=== PATIENT | male | born 1950 | race Caucasian/White ===

== ENCOUNTER 2024-11-23 12:55 | Outpatient (AMB) | payer MEDICARE, MEDICAID, SELFPAY ==
[2024-11-23 13:16] VITALS: BP 147/83; PULSE 68; RESP 18; TEMP 36.4; O2SAT 91; BMI 21.9
--- NOTE | 2024-11-23 13:16 | ORTHONT_ITS ---
Vital signs 11/23/24 13:16 Height 1.7 m Height Method Measured Weight 63.56 kg Weight Measurement Method Standing Scale BMI 21.9 BP 147/83 H Blood Pressure Source Automatic Cuff Blood Pressure Location Left Upper Arm Position Sitting Respiration 18 Pulse 68 Pulse Source Monitor Temp 97.6 F Temp Source Temporal Artery Scan Pulse Oximetry (%) 91 L Oxygen Delivery Method Room Air Med/Allergies Allergies & Medications Allergies No Known Allergies Allergy (Verified 11/23/24 13:18) Medication Reconciliation aspirin 81 mg tablet 81 mg PO QDAY 11/23/24 [History Confirmed 11/23/24] Exam Exam Patient is in no acute distress and is cooperative with the examination today. Breathing is nonlabored. In no respiratory distress. Patient has no paraspinal tenderness. Spinal deformity cannot be appreciated. The gait of the patient is nonantalgic Bilateral extremities were evaluated and demonstrates sensation intact to light touch. Palpable pedal pulses are present. No significant edema is present. Bilateral knees were examined and the patient has full strength and range of motion.. The left hip was examined. Patient was able to flex to 90 degrees, adduct to 30 degrees, abduct to 40 degrees, internally rotate to 20 degrees, and externally rotate to 20 degrees. Patient has a negative logroll. Stinchfield is negative. The patient is nontender diffusely to touch. The right hip was examined. Patient was able to flex to 90 degrees, adduct to 30 degrees, abduct to 40 degrees, internally rotate to 20 degrees, and externally rotate to 20 degrees. Patient has a negative logroll. The stinchfield is negative. Assessment and Plan Problem List (1) Right hip pain: Status: Acute Plan: ASSESSMENT AND PLAN 1. Right hip pain: The symptoms suggest that the pain may not be originating from the hip, as it extends down the whole leg. Previous hip x-rays showed very mild arthritis. The pain does not exhibit characteristics of nerve pain such as electric sensations, numbness, or tingling. An x-ray of the hip will be ordered to further investigate the cause of the pain. The patient is advised to get the x-ray done at [facility] and bring a CD of the images for review. He has been taking Tylenol 100 mg for pain management, one tablet in the morning. He should continue with Tylenol as needed for pain relief. Risks and benefits of continuing Tylenol were discussed, including avoiding ibuprofen due to previous adverse effects. Lifestyle modifications such as avoiding activities that exacerbate the pain were recommended. No physical therapy or injections have been pursued yet, and these options may be considered based on x-ray results. Referral to a specialist may be necessary if the x-ray does not reveal a clear cause of the pain. 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 Level 3 ([id number]) MA Intake Visit Data Collection New Patient or Established: New Patient (never been to [facility]) Reason for Visit:: RIGHT HIP PAIN Seen by Clinical Staff ONLY (RN/MA): No 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 PCP or OBGYN visit in last 3 months: Yes Hx Now: No Do You Feel Safe at Home: Yes Authorities Contacted: N/A Questionairres Past Medical History Past Medical History Have you ever been diagnosed with any of the following: Subjective Visit Visit for: new patient and hip Immunization / Flu Flu Vaccine in the Last 12 Months: No Flu Vaccine Exclusion Criteria: Refused by Patient History of Present Illness Chief complaint: RIGHT HIP PAIN Date of injury / onset of symptoms: 1 YEAR HISTORY OF PRESENT ILLNESS I, Piotr Jordan, have obtained verbal consent from the patient, to be recorded during this encounter which may include, but not limited to, medical history, examination, treatment plans, and relevant health information.? Patient was informed that recording will be read and reviewed by myself before inclusion in the medical chart. The patient is a 74-year-old male who presents today with right hip pain, which he has been experiencing for about a year now. He has not had injections or physical therapy. He was advised to stop taking ibuprofen and has started taking Tylenol. Imaging was completed at [facility]. He reports intermittent pain in his right hip, which he manages with [id number] Tylenol. Previously, he used ibuprofen for pain relief but discontinued it due to a hospital admission. His current regimen includes one tablet of extra strength Tylenol 100 mg in the morning. The pain occasionally radiates down his entire leg. He does not experience any symptoms of nerve pain such as electric shocks, numbness, or tingling. His back has not been evaluated. He has been unable to work due to the pain and has consulted numerous doctors for this issue. PAST SURGICAL HISTORY: Right knee replacement [address] Patricio. Personal History Red flag PMH: smoker BMI Counceling provided: No Pain Pain level (0-10): 0 Pain location: groin Pain quality: dull Associated signs & symptoms: none Ambulatory data Ambulatory device: none Treatments Number of previous injections: 0 Improvement with previous injections: No Number of Physical Therapy sessions: 0 Improvement with PT: No Improvement with NSAIDS: no Review of Systems Review of Systems: All systems negative unless otherwise noted in HPI.
== END 2024-11-23 13:24 | disposition home or self-care (01) ==
PROVIDERS: PCP Student in an Organized Health Care Education/Training Program; Referring Provider Student in an Organized Health Care Education/Training Program; Supervising Provider Orthopaedic Surgery Adult Reconstructive Orthopaedic Surgery; Visit Provider Orthopaedic Surgery Adult Reconstructive Orthopaedic Surgery
DX: M25.551 Pain in right hip (principal); M16.9 Osteoarthritis of hip, unspecified
CPT/HCPCS: 99203; G0463

== ENCOUNTER 2024-12-28 13:46 | Outpatient (AMB) | payer MEDICARE, MEDICAID, SELFPAY ==
--- NOTE | 2024-12-28 14:12 | ORTHONT_ITS ---
Vital signs 12/28/24 14:13 Height 1.7 m Height Method Stated Weight 64.127 kg Weight Measurement Method Standing Scale BMI 22.1 BP 125/71 Blood Pressure Source Automatic Cuff Blood Pressure Location Left Upper Arm Position Sitting Respiration 18 Pulse 72 Pulse Source Monitor Temp 98.4 F Temp Source Temporal Artery Scan Pulse Oximetry (%) 90 L Oxygen Delivery Method Room Air Med/Allergies Allergies & Medications Allergies No Known Allergies Allergy (Verified 12/28/24 14:16) Medication Reconciliation aspirin 81 mg tablet 81 mg PO QDAY 11/23/24 [History Confirmed 12/28/24] Exam Exam Patient is in no acute distress and is cooperative with the examination today. Breathing is nonlabored. In no respiratory distress. Patient has no paraspinal tenderness. Spinal deformity cannot be appreciated. The gait of the patient is nonantalgic Bilateral extremities were evaluated and demonstrates sensation intact to light touch. Palpable pedal pulses are present. No significant edema is present. Bilateral knees were examined and the patient has full strength and range of motion.. The left hip was examined. Patient was able to flex to 90 degrees, adduct to 30 degrees, abduct to 40 degrees, internally rotate to 20 degrees, and externally rotate to 20 degrees. Patient has a negative logroll. Stinchfield is negative. The patient is nontender diffusely to touch. The right hip was examined. Patient was able to flex to 90 degrees, adduct to 30 degrees, abduct to 40 degrees, internally rotate to 20 degrees, and externally r otate to 20 degrees. Patient has a negative logroll. The stinchfield is negative. x-rays of the right hip demonstrate mild arthritis with minimal joint space narrowing Assessment and Plan Problem List (1) Right hip pain: Status: Acute Plan: ASSESSMENT AND PLAN 1. Right hip pain: The symptoms suggest that the pain may not be originating from the hip, as it extends down the whole leg. Previous hip x-rays showed very mild arthritis. The pain does not exhibit characteristics of nerve pain such as electric sensations, numbness, or tingling. his right hip pain has disappeared. He has minimal arthritis on x-rays. He can return to work with no restrictions Advanced Care Planning Discussion Advance care planning discussed with:: patient Office Procedures GNS Level of Care Nursing/Assessment Patient Status: Established Patient Nursing Assessment/Reassesment: Medication Reconciliation, Update PMH in EMR and Vital Signs Coordination of Care: Complex Care and Chronic Disease 1-5, Education Complex Pt/Fam, Consent,records obtained, informed consent, Results/Orders obtained and Staff clarify orders Established Patient Charge Established Patient Point Assignment: 95 Established Patient Point Charge: EP Level 3 (80-115) MA Intake Visit Data Collection New Patient or Established: Established Patient (seen at [facility] within 3 years) Reason for Visit:: RIGHT HIP PAIN/XRAY RESULTS Seen by Clinical Staff ONLY (RN/MA): No 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 PCP or OBGYN visit in last 3 months: Yes Hx Now: No Do You Feel Safe at Home: Yes Authorities Contacted: N/A Questionairres Past Medical History Past Medical History Have you ever been diagnosed with any of the following: Subjective Visit Visit for: follow up visit and hip (RIGHT) Immunization / Flu Flu Vaccine in the Last 12 Months: No Flu Vaccine Exclusion Criteria: Refused by Patient History of Present Illness Chief complaint: RIGHT HIP PAIN Date of injury / onset of symptoms: 1 YEAR HISTORY OF PRESENT ILLNESS I, Piotr Jordan, have obtained verbal consent from the patient, to be recorded during this encounter which may include, but not limited to, medical history, examination, treatment plans, and relevant health information.? Patient was informed that recording will be read and reviewed by myself before inclusion in the medical chart. The patient is a 74-year-old male who presents today with right hip pain, which he has been experiencing for about a year now. he reports that he has no pain now. He is here for x-ray evaluation He has not had injections or physical therapy. Thank you PAST SURGICAL HISTORY: Right knee replacement [address] Patricio. Personal History Red flag PMH: smoker BMI Counceling provided: No Pain Pain level (0-10): 0 Pain location: groin Pain quality: dull Associated signs & symptoms: none Ambulatory data Ambulatory device: none Treatments Number of previous injections: 0 Improvement with previous injections: No Number of Physical Therapy sessions: 0 Improvement with PT: No Improvement with NSAIDS: no Review of Systems Review of Systems: All systems negative unless otherwise noted in HPI.
[2024-12-28 14:13] VITALS: BP 125/71; PULSE 72; RESP 18; TEMP 36.9; O2SAT 90; BMI 22.1
== END 2024-12-28 14:21 | disposition home or self-care (01) ==
LOC: HODSRG 13:46
PROVIDERS: PCP Student in an Organized Health Care Education/Training Program; Referring Provider Student in an Organized Health Care Education/Training Program; Supervising Provider Orthopaedic Surgery Adult Reconstructive Orthopaedic Surgery; Visit Provider Orthopaedic Surgery Adult Reconstructive Orthopaedic Surgery
DX: M25.551 Pain in right hip (principal); M16.11 Unilateral primary osteoarthritis, right hip
CPT/HCPCS: 99213; G0463